=== PATIENT | male | born 1985 | race Caucasian/White ===

== ENCOUNTER → 2023-04-17 | Outpatient (CLI) | payer OTHER ==
--- NOTE | 2023-04-17 17:44 | US ---
EXAMINATION TYPE: US abdomen complete DATE OF EXAM: 04/17/2023 COMPARISON: NONE CLINICAL INDICATION: Male, 38 years old with history of R94.5 ABNORMAL RESULTS OF LIVER FUNCTION STUD IES; abn liver enzymes, h/o cholelithiasis, no symptoms TECHNIQUE: Multiple sonographic images of the abdomen are obtained. FINDINGS: EXAM MEASUREMENTS: Liver Length: 18.5 cm Gallbladder Wall: 0.2 cm CBD: 0.6 cm Spleen: 12.4 cm Right Kidney: 12.1 x 5.2 x 6.1 cm Left Kidney: 12.7 x 4.9 x 6.3 cm TRAIN OPERATOR NOTES: large habitus and bowel gas limits exam Pancreas: Only portions of the pancreatic neck and body are seen. Head and tail obscured by bowel ga s shadowing. Liver: Superiorly attenuating and echogenic. This secondarily limits assessment for focal lesions. Gallbladder: multiple stones within dependant portion, some up to 2.0cm in size. No abnormal distent ion, wall thickening, or pericholecystic fluid. Evidence for sonographic Perrin's sign: no CBD: Upper limits of normal. Spleen: wnl Right Kidney: wnl Left Kidney: wnl Upper IVC: wnl Abd Aorta: wnl IMPRESSION: 1. Mild hepatomegaly at 18.5 cm with very severe hepatic steatosis. Appropriate clinical management i s advised. 2. Cholelithiasis. No ancillary findings of acute cholecystitis. 3. Bile duct borderline dilated at 6 mm. This may be chronic for the patient. Correlate with alkaline phosphatase and bilirubin levels to exclude early biliary obstruction.
== END | disposition home or self-care (01) ==
LOC: RADUSWWP 06:47
PROVIDERS: ATTEND Internal Medicine
DX: K80.20 Calculus of gallbladder without cholecystitis without obstruction (principal); K76.0 Fatty (change of) liver, not elsewhere classified; K83.8 Other specified diseases of biliary tract; R16.0 Hepatomegaly, not elsewhere classified; R94.5 Abnormal results of liver function studies
CPT/HCPCS: 76700